=== PATIENT | male | born 1985 | race Caucasian/White ===

== ENCOUNTER 2017-03-30 07:48 | Emergency (ER) | payer OTHER ==
[2017-03-30] MEDS ORDERED: ACETAMINOPHEN TAB 500 MG TAB PO STA (08:12)
[2017-03-30] MEDS ORDERED: IBUPROFEN 600 MG TAB PO STA (08:12)
[2017-03-30] MEDS ORDERED: IPRATROPIUM-ALBUTEROL 3 ML NEB INHALATION STA (08:13)
[2017-03-30] MEDS ORDERED: SODIUM CHLORIDE 0.9% 2,000 ML IV ONE (08:14)
[2017-03-30] MEDS ORDERED: ONDANSETRON 4 MG/2 ML VIAL IVP STA (08:14)
--- NOTE | 2017-03-30 08:21 | ED ---
Nausea/Vomiting/Diarrhea HPI - General Chief complaint: Nausea/Vomiting/Diarrhea Stated complaint: vomiting, rt testicle pain, multiple complaints Time Seen by Provider: 03/30/17 08:00 Source: patient, RN notes reviewed, old records reviewed Mode of arrival: ambulatory Limitations: no limitations - History of Present Illness Initial comments: This patient is a 31-year-old male with multiple complaints today. He reports that he woke up this morning morning with nausea and vomiting, aches and fevers and chills. He reports that nobody around him as the flu. He reports that he also has been having some right testicular pain for the past 2 days. He reports he has no difficulty with urination. He denies any blood in his urine. He states that he has had no trauma to the area. He complains of backaches, sore throat, hoarse voice, any ear pain. He reports that he also has been having some trouble with his right ear for the past week. He reports that his dog jumped up and hit him in the ear. He reports he's noticed some drainage from his ear since then. Patient reports he took an aspirin prior to arrival. - Related Data Home Medications Medication Instructions Recorded Confirmed Aspirin 325 mg PO DAILY PRN 03/30/17 03/30/17 Melatonin 3 mg PO HS 03/30/17 03/30/17 diphenhydrAMINE [Benadryl] 25 mg PO TID PRN 03/30/17 03/30/17 Previous Rx's Medication Instructions Recorded Acetaminophen-Codeine 300-30mg 1 tab PO Q6H PRN #20 tablet 03/30/17 [Tylenol #3] Ciprofloxacin HCl [Cipro] 500 mg PO BID 10 Days #6 tab 03/30/17 Ondansetron Odt [Zofran Odt] 4 mg PO Q8HR PRN #20 tab 03/30/17 metroNIDAZOLE [Flagyl] 500 mg PO TID #30 tab 03/30/17 Allergies Allergy/AdvReac Type Severity Reaction Status Date / Time No Known Allergies Allergy Verified 03/30/17 11:41 Review of Systems ROS Statement: Those systems with pertinent positive or pertinent negative responses have been documented in the HPI. ROS Other: All systems not noted in ROS Statement are negative. Past Medical History Additional Past Medical History / Comment(s): borderline personality disorder History of Any Multi-Drug Resistant Organisms: None Reported Past Surgical History: Adenoidectomy, Ear Surgery, Tonsillectomy Additional Past Surgical History / Comment(s): left arm laceration repair Past Psychological History: Anxiety, Bipolar Smoking Status: Never smoker Past Alcohol Use History: Occasional Past Drug Use History: None Reported General Exam - General Exam Comments Initial Comments: This patient is a 31-year-old male. Patient does appear to be in moderate discomfort. Limitations: no limitations General appearance: alert, in no apparent distress Head exam: Present: atraumatic, normocephalic, normal inspection Eye exam: Present: normal appearance, PERRL, EOMI. Absent: scleral icterus, conjunctival injection, periorbital swelling ENT exam: Present: normal exam, mucous membranes moist Neck exam: Present: normal inspection. Absent: tenderness, meningismus, lymphadenopathy Respiratory exam: Present: rhonchi (bilaterally). Absent: normal lung sounds bilaterally, respiratory distress, wheezes, rales, stridor Cardiovascular Exam: Present: regular rate, normal rhythm, normal heart sounds. Absent: systolic murmur, diastolic murmur, rubs, gallop, clicks GI/Abdominal exam: Present: soft, tenderness (minimal RLQ tenderness), normal bowel sounds. Absent: distended, guarding, rebound, rigid exam: Present: normal inspection, testicular tenderness (right testicular tenderness) External exam: Present: normal external exam Extremities exam: Present: normal inspection, full ROM, normal capillary refill. Absent: tenderness, pedal edema, joint swelling, calf tenderness Back exam: Present: normal inspection Neurological exam: Present: alert, oriented X3, CN II-XII intact Psychiatric exam: Present: normal affect, normal mood Course Vital Signs 03/30/17 03/30/17 03/30/17 07:52 08:29 08:30 Temperature 99.1 F 100.8 F H Pulse Rate 61 61 Respiratory 20 Rate Blood Pressure 143/93 O2 Sat by Pulse 97 Oximetry 03/30/17 03/30/17 09:39 11:31 Temperature 98.9 F 98.8 F Pulse Rate 108 H 96 Respiratory 16 16 Rate Blood Pressure 181/78 131/73 O2 Sat by Pulse 99 100 Oximetry Medical Decision Making - Medical Decision Making This patient is a 31-year-old male with multiple complaints today. He reports that he woke up this morning morning with nausea and vomiting, aches and fevers and chills. He reports that nobody around him as the flu. He reports that he also has been having some right testicular pain for the past 2 days. Patient arrived with fever and chills, and RLQ and testicular tenderness. PAtient lab work shows leukocytosis. urinalysis shows no infection. CT abdomen and pelvis shows evidence of colitis. Appendix is normal. HE had a normal US scrotum. Patient will be treated with cipro and flagyl for colitis. HE denies bloody stools or major diarrhea. Disucssed follow up with PCP and return parameters discussed. - Lab Data Result diagrams: 03/30/17 08:25 03/30/17 08:25 Lab Results 03/30/17 03/30/17 03/30/17 Range/Units 08:25 08:25 08:25 WBC 14.0 H (3.8-10.6) k/uL RBC 4.20 L (4.30-5.90) m/uL Hgb 11.4 L (13.0-17.5) gm/dL Hct 35.7 L (39.0-53.0) % MCV 85.0 (80.0-100.0) fL MCH 27.3 (25.0-35.0) pg MCHC 32.1 (31.0-37.0) g/dL RDW 13.9 (11.5-15.5) % Plt Count 239 (150-450) k/uL Neutrophils % 88 % Lymphocytes % 7 % Monocytes % 3 % Eosinophils % 1 % Basophils % 0 % Neutrophils # 12.3 H (1.3-7.7) k/uL Lymphocytes # 1.0 (1.0-4.8) k/uL Monocytes # 0.4 (0-1.0) k/uL Eosinophils # 0.2 (0-0.7) k/uL Basophils # 0.1 (0-0.2) k/uL PT (9.0-12.0) sec INR (<1.2) APTT (22.0-30.0) sec Sodium 134 L (137-145) mmol/L Potassium 3.9 (3.5-5.1) mmol/L Chloride 98 (98-107) mmol/L Carbon Dioxide 27 (22-30) mmol/L Anion Gap 9 mmol/L BUN 11 (9-20) mg/dL Creatinine 0.89 (0.66-1.25) mg/dL Est GFR (MDRD) Af Amer >60 (>60 ml/min/1.73 sqM) Est GFR (MDRD) Non-Af >60 (>60 ml/min/1.73 sqM) Glucose 110 H (74-99) mg/dL Plasma Lactic Acid Harpal 1.5 (0.7-2.0) mmol/L Calcium 8.9 (8.4-10.2) mg/dL Total Bilirubin 1.9 H (0.2-1.3) mg/dL AST 51 (17-59) U/L ALT 47 (21-72) U/L Alkaline Phosphatase 75 (38-126) U/L Total Protein 6.4 (6.3-8.2) g/dL Albumin 3.6 (3.5-5.0) g/dL Urine Color Urine Appearance (Clear) Urine pH (5.0-8.0) Ur Specific Connell (1.001-1.035) Urine Protein (Negative) Urine Glucose (UA) (Negative) Urine Ketones (Negative) Urine Blood (Negative) Urine Nitrite (Negative) Urine Bilirubin (Negative) Urine Urobilinogen (<2.0) mg/dL Ur Leukocyte Esterase (Negative) Influenza Type A RNA (Not Detectd) Influenza Type B (PCR) (Not Detectd) 03/30/17 03/30/17 03/30/17 Range/Units 08:25 08:25 09:36 WBC (3.8-10.6) k/uL RBC (4.30-5.90) m/uL Hgb (13.0-17.5) gm/dL Hct (39.0-53.0) % MCV (80.0-100.0) fL MCH (25.0-35.0) pg MCHC (31.0-37.0) g/dL RDW (11.5-15.5) % Plt Count (150-450) k/uL Neutrophils % % Lymphocytes % % Monocytes % % Eosinophils % % Basophils % % Neutrophils # (1.3-7.7) k/uL Lymphocytes # (1.0-4.8) k/uL Monocytes # (0-1.0) k/uL Eosinophils # (0-0.7) k/uL Basophils # (0-0.2) k/uL PT 10.6 (9.0-12.0) sec INR 1.1 (<1.2) APTT 24.2 (22.0-30.0) sec Sodium (137-145) mmol/L Potassium (3.5-5.1) mmol/L Chloride (98-107) mmol/L Carbon Dioxide (22-30) mmol/L Anion Gap mmol/L BUN (9-20) mg/dL Creatinine (0.66-1.25) mg/dL Est GFR (MDRD) Af Amer (>60 ml/min/1.73 sqM) Est GFR (MDRD) Non-Af (>60 ml/min/1.73 sqM) Glucose (74-99) mg/dL Plasma Lactic Acid Harpal (0.7-2.0) mmol/L Calcium (8.4-10.2) mg/dL Total Bilirubin (0.2-1.3) mg/dL AST (17-59) U/L ALT (21-72) U/L Alkaline Phosphatase (38-126) U/L Total Protein (6.3-8.2) g/dL Albumin (3.5-5.0) g/dL Urine Color Yellow Urine Appearance Clear (Clear) Urine pH 6.0 (5.0-8.0) Ur Specific Connell 1.023 (1.001-1.035) Urine Protein Trace H (Negative) Urine Glucose (UA) Negative (Negative) Urine Ketones Negative (Negative) Urine Blood Negative (Negative) Urine Nitrite Negative (Negative) Urine Bilirubin Negative (Negative) Urine Urobilinogen <2.0 (<2.0) mg/dL Ur Leukocyte Esterase Negative (Negative) Influenza Type A RNA Not Detected (Not Detectd) Influenza Type B (PCR) Not Detected (Not Detectd) - Radiology Data Radiology results: report reviewed Ultrasound of the scrotum a Doppler showed evidence of normal intrinsic testicles. Small, bilateral hydroceles. Patient has a normal chest x-ray. CT abdomen and pelvis states to correlate for colitis. Normal appendix. Mild hepato-megaly. Disposition Clinical Impression: Colitis Disposition: HOME SELF-CARE Condition: Good Instructions: Colitis (ED) Additional Instructions: Patient advised to follow-up with primary care physician. Take the medicines as prescribed. Return to emergency department if any alarming signs or symptoms occur. Prescriptions: Acetaminophen-Codeine 300-30mg [Tylenol #3] 1 tab PO Q6H PRN #20 tablet PRN Reason: Pain Ciprofloxacin HCl [Cipro] 500 mg PO BID 10 Days #6 tab metroNIDAZOLE [Flagyl] 500 mg PO TID #30 tab Ondansetron Odt [Zofran Odt] 4 mg PO Q8HR PRN #20 tab PRN Reason: Pain Referrals: None,Stated [Primary Care Provider] - 1-2 days Time of Disposition: 11:41
--- NOTE | 2017-03-30 08:56 | XR ---
EXAMINATION TYPE: XR chest 2V DATE OF EXAM: 03/30/2017 HISTORY: Fever. REFERENCE: Previous study dated 06/22/2012. FINDINGS: The lungs remain clear. Pleural space are clear. The heart is not enlarged.. IMPRESSION: NORMAL CHEST.
--- NOTE | 2017-03-30 09:36 | US ---
EXAMINATION TYPE: US scrotum with doppler. Grayscale and color Doppler Duplex imaging performed of yadira piper scrotum. DATE OF EXAM: 03/30/2017 COMPARISON: NONE CLINICAL HISTORY: Pain. Right testicle pain EXAM MEASUREMENTS: TESTICLES: Right Testicle: 6.1 x 2.2 x 4.2 cm Left Testicle: 5.3 x 2.1 x 4.1 cm EPIDIDYMIS HEAD: Right Epididymis: 1.3 cm Left Epididymis: 1.2 cm Doppler performed to assess for testicular vascularity; good bilateral color flow and waveforms are s een. There is no evidence of testicular torsion. Presence of hydroceles: medial to left testicle = 3.4cm Presence of varicoceles: mild lateral to left testicle IMPRESSION: 1. NORMAL INTRINSIC TESTICLES. 2. SMALL, BILATERAL HYDROCELES.
[2017-03-30 09:41] LABS: Basophils # (A) 0.1 k/uL (0-0.2); Basophils % (A) 0 %; Eosinophils # (A) 0.2 k/uL (0-0.7); Eosinophils % (A) 1 %; HCT 35.7 % (39.0-53.0); HGB 11.4 gm/dL (13.0-17.5); Lymphocytes % (A) 7 %; MCH 27.3 pg (25.0-35.0); MCHC 32.1 g/dL (31.0-37.0); Mean Platelet Volume 6.6; Monocytes # (A) 0.4 k/uL (0-1.0); Monocytes % (A) 3 %; Neutrophils # (A) 12.3 k/uL (1.3-7.7); Neutrophils % (A) 88 %; Platelet Count 239 k/uL (150-450); RDW 13.9 % (11.5-15.5)
[2017-03-30 09:48] LABS: Appearance,Urine Clear (Clear); Bilirubin,Urine Negative (Negative); Blood,Urine Negative (Negative); Color,Urine Yellow; Glucose,Urine (UA) Negative (Negative); Ketones,Urine Negative (Negative); Leukocyte Esterase,Urine Negative (Negative); Nitrite,Urine Negative (Negative); Protein,Urine Trace (Negative); Specific Gravity,Urine 1.023 (1.001-1.035); Urobilinogen,Urine <2.0 mg/dL (<2.0)
[2017-03-30 09:51] LABS: INR 1.1 (<1.2)
[2017-03-30 09:52] LABS: Partial Thromboplastin Time 24.2 sec (22.0-30.0); Prothrombin Time 10.6 sec (9.0-12.0)
[2017-03-30 09:54] LABS: ALT 47 U/L (21-72); AST 51 U/L (17-59); Albumin 3.6 g/dL (3.5-5.0); Alkaline Phosphatase 75 U/L (38-126); Anion Gap 9 mmol/L; Blood Urea Nitrogen 11 mg/dL (9-20); Calcium 8.9 mg/dL (8.4-10.2); Carbon Dioxide 27 mmol/L (22-30); Chloride 98 mmol/L (98-107); Glucose 110 mg/dL (74-99); Potassium 3.9 mmol/L (3.5-5.1); Sodium 134 mmol/L (137-145); Total Bilirubin 1.9 mg/dL (0.2-1.3); Total Protein 6.4 g/dL (6.3-8.2)
[2017-03-30 09:57] VITALS: RESP 16
[2017-03-30] MEDS ORDERED: RX INFO: IV CONTRAST WAS GIVEN 1 EACH MISC MISCELLANE PRN (10:00)
[2017-03-30] MEDS ORDERED: MORPHINE SULFATE 2 MG/ML SYRINGE IVP STA ×2 (10:01→10:11)
--- NOTE | 2017-03-30 10:59 | CT ---
EXAMINATION TYPE: CT abdomen pelvis w con DATE OF EXAM: 03/30/2017 REFERENCE: Previous study dated 06/22/2012 HISTORY: RLQ pain, fever HISTORY: Vomit ting and right testicular pain REFERENCE: NONE CT DLP: 617.40 mGy Automated exposure control for dose reduction was used. TECHNIQUE: Helical acquisition through the abdomen and pelvis was obtained following the oral ingesti on of without Oral Contrast and following intravenous administration of 100 ml mL of Omnipaque 300. T he data was reformatted in axial, coronal and sagittal projections. FINDINGS: Visualized portions of the lungs are clear. There is no pleural or pericardial fluid. The heart is not enlarged. There is a small hiatal hernia. The liver is mildly prominent measuring 20 cm. There is a small hemangioma measuring 2.1 cm and the p osterior segment of the right lobe of the liver. This completely fills in with contrast on the delaye d images. The spleen and gallbladder appear normal. Both adrenal glands appear normal. Both kidneys demonstrate function and appear morphologically normal. The pancreas is unremarkable. There is no significant retroperitoneal, iliac or inguinal adenopathy. The bladder is unremarkable. There is mucosal thickening involving the sigmoid colon. The appendix is normal. Small bowel caliber is normal. There is no free fluid and no free air. There is a small is noted in the superior endplate of the L2 vertebral body. The visualized skeleton is otherwise unremarkable. IMPRESSION: 1. PLEASE CORRELATE FOR COLITIS. 2. NORMAL APPENDIX. 3. MILD HEPATOMEGALY.
[2017-03-30 11:32] VITALS: BP 131/73; PULSE 96; TEMP 98.8
[2017-03-30] MEDS ORDERED: metroNIDAZOLE 500 MG TAB PO STA (11:40)
[2017-03-30] MEDS ORDERED: CIPROFLOXACIN HCL 500 MG TAB PO STA (11:40)
== END 2017-03-30 12:01 | disposition home or self-care (01) ==
LOC: EC 07:48
DX: K52.9 Noninfective gastroenteritis and colitis, unspecified (principal); R09.89 Other specified symptoms and signs involving the circulatory and respiratory systems; N50.811 Right testicular pain; R50.9 Fever, unspecified; R52 Pain, unspecified; R11.2 Nausea with vomiting, unspecified; J02.9 Acute pharyngitis, unspecified; R49.0 Dysphonia; H92.01 Otalgia, right ear; H93.8X1 Other specified disorders of right ear; Z79.899 Other long term (current) drug therapy; Z90.89 Acquired absence of other organs; Z98.890 Other specified postprocedural states
CPT/HCPCS: 36415; 94640; 80053; 83605; 85025; 85610; 85730; 81003; 87040; 87086; 87502; 71046; 93975; 76870; 74177; 99285; 96374; 96375; 96361 ×2; J2405; J2270; Q9967

== ENCOUNTER 2021-08-18 10:33 | Emergency (ER) | payer OTHER ==
[2021-08-18 10:42] VITALS: BP 118/71; PULSE 79; RESP 18; TEMP 97.7
[2021-08-18] MEDS ORDERED: KETOROLAC 15 MG/ML 1 ML VIAL IVP STA (10:54)
--- NOTE | 2021-08-18 11:11 | ED ---
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 He states that symptoms began approximately 3 days ago and have progressively gotten worse. He states that he had a prescription for penicillin at home that was several years old; he took 2 doses of that medication however he had noticed no change in symptoms. He has not taken any other medications regarding his symptoms. He reports some associated occasional nausea without vomiting and chills at night however he denies any chest pain, shortness of breath, known fevers, or difficulty eating and drinking. He has a past medical history significant for bipolar disorder but has no other underlying chronic conditions. He denies any other complaints or concerns. - Related Data Home Medications Medication Instructions Recorded Confirmed Aspirin 325 mg PO DAILY PRN 03/30/17 03/30/17 Melatonin 3 mg PO HS 03/30/17 03/30/17 diphenhydrAMINE [Benadryl] 25 mg PO TID PRN 03/30/17 03/30/17 Previous Rx's Medication Instructions Recorded Acetaminophen-Codeine 300-30mg 1 tab PO Q6H PRN #20 tablet 03/30/17 [Tylenol #3] Ciprofloxacin HCl [Cipro] 500 mg PO BID 10 Days #6 tab 03/30/17 Ondansetron Odt [Zofran Odt] 4 mg PO Q8HR PRN #20 tab 03/30/17 metroNIDAZOLE [Flagyl] 500 mg PO TID #30 tab 03/30/17 Amoxic-Pot Clav 875-125Mg 1 tab PO Q12HR 10 Days #20 tab 08/18/21 [Augmentin 875-125] Allergies Allergy/AdvReac Type Severity Reaction Status Date / Time No Known Allergies Allergy Verified 08/18/21 10:39 Review of Systems ROS Statement: Those systems with pertinent positive or pertinent negative responses have been documented in the HPI. ROS Other: All systems not noted in ROS Statement are negative. Past Medical History Additional Past Medical History / Comment(s): borderline personality disorder History of Any Multi-Drug Resistant Organisms: None Reported Past Surgical History: Adenoidectomy, Ear Surgery, Tonsillectomy Additional Past Surgical History / Comment(s): left arm laceration repair Past Psychological History: Anxiety, Bipolar Smoking Status: Never smoker Past Alcohol Use History: Occasional Past Drug Use History: None Reported General Exam Limitations: no limitations General appearance: alert, in no apparent distress Head exam: Present: atraumatic, normocephalic, normal inspection Eye exam: Present: PERRL, EOMI, periorbital swelling, periorbital tenderness (left). Absent: scleral icterus, conjunctival injection Expanded Mouth exam: Present: tongue normal, other (Left upper vesicular lesions noted to oromucosa with surrounding edema and erythema. No drainage.) Teeth exam: Present: dental caries, fractured tooth #, dental tenderness #, gingival enlargement Throat exam: other (erythema and uvular deviation) Neck exam: Present: lymphadenopathy. Absent: tenderness Respiratory exam: Present: normal lung sounds bilaterally. Absent: respiratory distress, wheezes, rales, rhonchi, stridor Cardiovascular Exam: Present: regular rate, normal rhythm, normal heart sounds. Absent: systolic murmur, diastolic murmur, rubs, gallop, clicks GI/Abdominal exam: Present: soft, normal bowel sounds. Absent: distended, tenderness, guarding, rebound, rigid Extremities exam: Present: normal inspection, full ROM, normal capillary refill. Absent: tenderness, pedal edema, joint swelling, calf tenderness Back exam: Present: normal inspection Neurological exam: Present: alert, oriented X3, CN II-XII intact Psychiatric exam: Present: normal affect, normal mood Skin exam: Present: warm, dry, intact, normal color. Absent: rash Course Vital Signs 08/18/21 10:40 Temperature 97.7 F Pulse Rate 79 Respiratory 18 Rate Blood Pressure 118/71 O2 Sat by Pulse 98 Oximetry Medical Decision Making - Medical Decision Making In the setting of periorbital edema, nausea and chills will check CT of sinuses along with CBC, CMP and blood cultures will give IM Toradol for pain and swelling and monitor response. Pain improved with Toradol. Mild leukocytosis consistent with dental abscess. No evidence of sepsis on blood work. Computed tomography scan shows chronic sinusitis. Will discharge home on oral antibiotics and encourage follow-up with dentist. Case discussed with Dr. Jonas - Lab Data Result diagrams: 08/18/21 11:08 08/18/21 11:08 Lab Results 08/18/21 08/18/21 Range/Units 11:08 11:08 WBC 12.1 H (3.8-10.6) k/uL RBC 4.52 (4.30-5.90) m/uL Hgb 14.5 (13.0-17.5) gm/dL Hct 42.3 (39.0-53.0) % MCV 93.5 (80.0-100.0) fL MCH 32.0 (25.0-35.0) pg MCHC 34.2 (31.0-37.0) g/dL RDW 13.1 (11.5-15.5) % Plt Count 274 (150-450) k/uL MPV 7.2 Neutrophils % 81 % Lymphocytes % 11 % Monocytes % 5 % Eosinophils % 1 % Basophils % 0 % Neutrophils # 9.7 H (1.3-7.7) k/uL Lymphocytes # 1.3 (1.0-4.8) k/uL Monocytes # 0.6 (0-1.0) k/uL Eosinophils # 0.2 (0-0.7) k/uL Basophils # 0.0 (0-0.2) k/uL Sodium 137 (137-145) mmol/L Potassium 4.3 (3.5-5.1) mmol/L Chloride 103 (98-107) mmol/L Carbon Dioxide 27 (22-30) mmol/L Anion Gap 7 mmol/L BUN 8 L (9-20) mg/dL Creatinine 0.87 (0.66-1.25) mg/dL Est GFR (CKD-EPI)AfAm >90 (>60 ml/min/1.73 sqM) Est GFR (CKD-EPI)NonAf >90 (>60 ml/min/1.73 sqM) Glucose 103 H (74-99) mg/dL Calcium 8.5 (8.4-10.2) mg/dL Total Bilirubin 1.3 (0.2-1.3) mg/dL AST 32 (17-59) U/L ALT 31 (4-49) U/L Alkaline Phosphatase 68 (38-126) U/L Total Protein 7.2 (6.3-8.2) g/dL Albumin 4.2 (3.5-5.0) g/dL Disposition Clinical Impression: Dental abscess Disposition: HOME SELF-CARE Condition: Stable Instructions (If sedation given, give patient instructions): Dental Abscess (ED) Additional Instructions: Ibuprofen as needed for pain and 7. Please use warm salt water rinses. Continue complete antibiotic as prescribed. Please establish with an follow-up for dental care. Please follow-up with your primary care provider. Please return to the Emergency Department if symptoms worsen or any other concerns. Prescriptions: Amoxic-Pot Clav 875-125Mg [Augmentin 875-125] 1 tab PO Q12HR 10 Days #20 tab Is patient prescribed a controlled substance at d/c from ED?: No Referrals: None,Stated [Primary Care Provider] - As Soon As Possible (and local dentist) Time of Disposition: 13:09
[2021-08-18 11:23] LABS: Basophils % (A) 0 %; Eosinophils # (A) 0.2 k/uL (0-0.7); Eosinophils % (A) 1 %; HCT 42.3 % (39.0-53.0); HGB 14.5 gm/dL (13.0-17.5); Lymphocytes # (A) 1.3 k/uL (1.0-4.8); Lymphocytes % (A) 11 %; MCHC 34.2 g/dL (31.0-37.0); MCV 93.5 fL (80.0-100.0); Mean Platelet Volume 7.2; Monocytes # (A) 0.6 k/uL (0-1.0); Monocytes % (A) 5 %; Neutrophils # (A) 9.7 k/uL (1.3-7.7); Neutrophils % (A) 81 %; Platelet Count 274 k/uL (150-450); RBC 4.52 m/uL (4.30-5.90); RDW 13.1 % (11.5-15.5); WBC 12.1 k/uL (3.8-10.6)
[2021-08-18 11:37] LABS: ALT 31 U/L (4-49); AST 32 U/L (17-59); African American GFR (CKD) >90 (>60 ml/min/1.73 sqM); Albumin 4.2 g/dL (3.5-5.0); Alkaline Phosphatase 68 U/L (38-126); Anion Gap 7 mmol/L; Blood Urea Nitrogen 8 mg/dL (9-20); Calcium 8.5 mg/dL (8.4-10.2); Carbon Dioxide 27 mmol/L (22-30); Chloride 103 mmol/L (98-107); Glucose 103 mg/dL (74-99); Non-African American GFR(CKD) >90 (>60 ml/min/1.73 sqM); Potassium 4.3 mmol/L (3.5-5.1); Sodium 137 mmol/L (137-145); Total Bilirubin 1.3 mg/dL (0.2-1.3); Total Protein 7.2 g/dL (6.3-8.2)
--- NOTE | 2021-08-18 12:49 | CT ---
EXAMINATION TYPE: CT sinus wo con DATE OF EXAM: 08/18/2021 COMPARISON: None HISTORY: Lt sided cheek [id number] CT DLP: 405.6 mGycm. Automated Exposure Control for Dose Reduction was Utilized. TECHNIQUE: CT scan of the sinuses is performed without contrast, axial images are obtained, coronal r eformatted images are also reviewed. FINDINGS: The left maxillary sinus shows extensive mucosal thickening. There are no air-fluid levels. Mucosal disease also present within the ethmoid air cells. Ostiomeatal units are patent. Trice bull meme present bilaterally. Minimal mucosal disease present in the right maxillary sinus. There is a dev iated nasal septum toward the left. Temporomandibular joints are intact. There is some thickening of the tympanic membrane on the right. No erosion of the scutum bilaterally. Auditory ossicles show symmetric appearance. External auditory canals are patent. Visualized portion of mastoid air cells show no abnormal opacification. The globe s are intact bilaterally. IMPRESSION: Correlate for chronic sinusitis.
== END 2021-08-18 13:13 | disposition home or self-care (01) ==
LOC: EC 10:33
DX: K04.7 Periapical abscess without sinus (principal)
CPT/HCPCS: 36415; 80053; 85025; 70486; 99284; 96374; J1885

== ENCOUNTER 2023-01-16 22:13 | Emergency (ER) | payer OTHER ==
[2023-01-16] MEDS ORDERED: MORPHINE SULFATE 4 MG/ML SYRINGE IVP STA (22:20)
[2023-01-16] MEDS ORDERED: LORazepam 2 MG/ML INJ IV STA (22:26)
--- NOTE | 2023-01-16 22:34 | ED ---
Trauma HPI - General Stated Complaint: ETOH Time Seen by Provider: 01/16/23 22:15 Source: patient, EMS Mode of arrival: EMS Limitations: altered mental status - History of Present Illness Initial Comments: 's patient is a 37-year-old man brought to have evaluation by EMS. First responders were called to a man lying in the road. EMS arrived and found him to be poorly responsive. He did become more alert after they gave dose of Narcan. On arrival, the patient does not recall falling. He is denying is pain, dyspnea, back, abdomen or extremity pain. Patient admits to drinking MD Complaint: injury -: unknown Loss of Consciousness: yes Location: face Context: unsure Associated Symptoms: denies other symptoms Treatments Prior to Arrival: cervical collar - Related Data Home Medications Medication Instructions Recorded Confirmed Aspirin 325 mg PO DAILY PRN 03/30/17 03/30/17 Melatonin 3 mg PO HS 03/30/17 03/30/17 diphenhydrAMINE [Benadryl] 25 mg PO TID PRN 03/30/17 03/30/17 Previous Rx's Medication Instructions Recorded Acetaminophen-Codeine 300-30mg 1 tab PO Q6H PRN #20 tablet 03/30/17 [Tylenol #3] Ciprofloxacin HCl [Cipro] 500 mg PO BID 10 Days #6 tab 03/30/17 Ondansetron Odt [Zofran Odt] 4 mg PO Q8HR PRN #20 tab 03/30/17 metroNIDAZOLE [Flagyl] 500 mg PO TID #30 tab 03/30/17 Amoxic-Pot Clav 875-125Mg 1 tab PO Q12HR 10 Days #20 tab 08/18/21 [Augmentin 875-125] Allergies Allergy/AdvReac Type Severity Reaction Status Date / Time No Known Allergies Allergy Verified 08/18/21 10:39 Review of Systems ROS Statement: Those systems with pertinent positive or pertinent negative responses have been documented in the HPI. ROS Other: All systems not noted in ROS Statement are negative. Limitations: ROS unobtainable due to patients medical condition Past Medical History Additional Past Medical History / Comment(s): borderline personality disorder History of Any Multi-Drug Resistant Organisms: None Reported Past Surgical History: Adenoidectomy, Ear Surgery, Tonsillectomy Additional Past Surgical History / Comment(s): left arm laceration repair Past Psychological History: Anxiety, Bipolar Smoking Status: Never smoker Past Alcohol Use History: Occasional Past Drug Use History: None Reported General Exam General appearance: obtunded Head exam: Present: normocephalic Eye exam: Present: PERRL, EOMI, nystagmus. Absent: scleral icterus, conjunctival injection, periorbital swelling, periorbital tenderness ENT exam: Present: mucous membranes moist, TM's normal bilaterally, normal external ear exam, other (Blood bilateral nares) Neck exam: Present: other (Cervical collar). Absent: tenderness Respiratory exam: Present: normal lung sounds bilaterally. Absent: respiratory distress, wheezes, rales, rhonchi, stridor, accessory muscle use Cardiovascular Exam: Present: regular rate, normal rhythm, normal heart sounds. Absent: systolic murmur, diastolic murmur, rubs, gallop GI/Abdominal exam: Present: soft. Absent: distended, tenderness, guarding, rebound, rigid, mass, pulsatile mass, hernia Extremities exam: Present: normal inspection, normal capillary refill. Absent: pedal edema, calf tenderness Back exam: Present: normal inspection. Absent: CVA tenderness (R), CVA tendern ess (L), vertebral tenderness Neurological exam: Present: altered, CN II-XII intact. Absent: motor sensory deficit Expanded Patient oriented to: Present: person Motor strength exam: RUE: 5, LUE: 5, RLE: 5, LLE: 5 DTR: Patellar (R): 2+, Patellar (L): 2+ Eye Response: (3) open to voice Motor Response: (6) obeys commands Verbal Response: (4) confused conversation [place] Total: 13 Course Vital Signs 01/16/23 22:15 Pulse Rate 94 Respiratory 18 Rate Blood Pressure 114/64 O2 Sat by Pulse 96 Oximetry Medical Decision Making - Medical Decision Making This patient is 37-year-old man who was reportedly found unresponsive lying on the road. He is brought to the trauma resuscitation bay and managed under ATLS protocol. Case discussed with the trauma surgeon. The patient had chest x-ray which I interpreted as negative for acute bony trauma, no pneumothorax. The patient had pelvis x-ray which I interpreted as negative for acute bony injury. The patient had CT of the brain and C-spine that I interpreted to show nasal bone fracture area no acute intracranial hemorrhage The patient had computed tomography scan of the abdomen and pelvis which I interpreted to show no significant intra-abdominal hemorrhage, no solid organ injury, no acute bony injury The patient continued to become more alert and appropriate. He was denying any further complaints then mild facial discomfort. After being observed in the emergency department he stated that he wanted to go home he did not want to be admitted after this had already been arranged. Given that the patient is legally intoxicated, though not manifesting clinical symptoms of intoxication, he was held until a responsible adult would come and take custody of him. He did call family member who agreed to observe him. Was pt. sent in by a medical professional or institution (, PA, OFFICE AGENT, urgent care, hospital, or intermediate...) When possible be specific @ -[No] Did you speak to anyone other than the patient for history (EMS, parent, family, police, friend...)? What history was obtained from this source @ -[No] Did you review nursing and triage notes (agree or disagree)? Why? @ -[I reviewed and agree with nursing and triage notes] Were old charts reviewed (outside hosp., previous admission, EMS record, old EKG, old radiological studies, urgent care reports/EKG's, intermediate records)? Report findings @ -[No old charts were reviewed] Differential Diagnosis (chest pain, altered mental status, abdominal pain women, abdominal pain men, vaginal bleeding, weakness, fever, dyspnea, syncope, headache, dizziness, GI bleed, back pain, seizure, CVA, palpatations, mental health, musculoskeletal)? @ -[Differential Altered Mental Status: Hypoglycemia, DKA, hypercapnia, ETOH, overdose, CO poisoning, trauma, myxedema coma, HTN encephalopathy, infection, encephalitis, psychosis, intercranial hemorrhage, hepatic encephalopathy, meningitis, CVA, this is not meant to be an all-inclusive list Differential Musculoskeletal Muscular strain, contusion, ligament sprain, fracture, arthritis, septic arthritis, bursitis, cellulitis, muscle spasm, nerve compression, DVT, arterial occlusion, electrolyte abnormality, tumor.... This is not meant to be in all inclusive list EKG interpreted by me (3pts min.). @ -[As above] X-rays interpreted by me (1pt min.). @ -[I interpreted as above CT interpreted by me (1pt min.). @ -[Interpreted as above U/S interpreted by me (1pt. min.). @ -[None done] What testing was considered but not performed or refused? (CT, X-rays, U/S, labs)? Why? @ -[None] What meds were considered but not given or refused? Why? @ -[None] Did you discuss the management of the patient with other professionals (professionals i.e. , PA, OFFICE AGENT, lab, RT, psych nurse, social economist, plastics fabrication supervisor, teacher, equal employment opportunity officer, case operator)? Give summary @ -[Case discussed with the trauma surgeon on-call and treatment recommendations are incorporated Was smoking cessation discussed for >3mins.? @ -[No] Was critical care preformed (if so, how long)? @ -[No] Were there social determinants of health that impacted care today? How? (Homelessness, low income, unemployed, alcoholism, drug addiction, transportation, low edu. Level, literacy, decrease access to med. care, assisted, rehab)? @ -[No] Was there de-escalation of care discussed even if they declined (Discuss DNR or withdrawal of care, Hospice)? DNR status @ -[No] What co-morbidities impacted this encounter? (DM, HTN, Smoking, COPD, CAD, Cancer, CVA, ARF, Chemo, Hep., AIDS, mental health diagnosis, sleep apnea, morbid obesity)? @ -[None] Was patient admitted / discharged? Hospital course, mention meds given and route, prescriptions, significant lab abnormalities, going to OR and other pertinent info. @ -[The patient is initially admitted to the trauma service as he is legally intoxicated, though the patient not manifesting any ataxia or dysarthria, appearing more clinically sober. The patient is held until family member did arrive to take custody of him, and we discussed the appropriate further care, follow-up, return parameters. Undiagnosed new problem with uncertain prognosis? @ -[No] Drug Therapy requiring intensive monitoring for toxicity (Heparin, Nitro, Insulin, Cardizem)? @ -[No] Were any procedures done? @ -[No] Diagnosis/symptom? @ -[Acute alcohol intoxication History of substance abuse Acute minor head trauma Acute nasal bone fracture Acute, or Chronic, or Acute on Chronic? @ -[default] Uncomplicated (without systemic symptoms) or Complicated (systemic symptoms)? @ -[Uncomplicated Side effects of treatment? @ -[No] Exacerbation, Progression, or Severe Exacerbation? @ -[No] Poses a threat to life or bodily function? How? (Chest pain, [place], [place], pneumonia, PE, COPD, DKA, ARF, appy, cholecystitis, CVA, Diverticulitis, Homicidal, Suicidal, threat to staff... and all critical care pts) @ -[No] - Lab Data Result diagrams: 01/16/23 22:01/16/23 22:21 Lab Results 01/16/23 01/16/23 01/16/23 Range/Units 22:20 22:21 22:21 WBC 8.8 (3.8-10.6) k/uL RBC 4.76 (4.30-5.90) m/uL Hgb 15.1 (13.0-17.5) gm/dL Hct 45.6 (39.0-53.0) % MCV 95.7 (80.0-100.0) fL MCH 31.7 (25.0-35.0) pg MCHC 33.2 (31.0-37.0) g/dL RDW 13.1 (11.5-15.5) % Plt Count 275 (150-450) k/uL MPV 7.5 Neutrophils % 50 % Lymphocytes % 37 % Monocytes % 4 % Eosinophils % 4 % Basophils % 1 % Neutrophils # 4.4 (1.3-7.7) k/uL Lymphocytes # 3.3 (1.0-4.8) k/uL Monocytes # 0.4 (0-1.0) k/uL Eosinophils # 0.3 (0-0.7) k/uL Basophils # 0.1 (0-0.2) k/uL PT 10.6 (10.0-12.5) sec INR 1.0 (<1.2) APTT 23.0 (22.0-30.0) sec Sodium (137-145) mmol/L Potassium (3.5-5.1) mmol/L Chloride (98-107) mmol/L Carbon Dioxide (22-30) mmol/L Anion Gap mmol/L BUN (9-20) mg/dL Creatinine (0.66-1.25) mg/dL Est GFR (CKD-EPI)AfAm (>60 ml/min/1.73 sqM) Est GFR (CKD-EPI)NonAf (>60 ml/min/1.73 sqM) Glucose (74-99) mg/dL Plasma Lactic Acid Harpal (0.7-2.0) mmol/L Calcium (8.4-10.2) mg/dL Total Bilirubin (0.2-1.3) mg/dL AST (17-59) U/L ALT (4-49) U/L Alkaline Phosphatase (38-126) U/L Troponin I (0.000-0.034) ng/mL Total Protein (6.3-8.2) g/dL Albumin (3.5-5.0) g/dL Urine Opiates Screen (NotDetected) Ur Oxycodone Screen (NotDetected) Urine Methadone Screen (NotDetected) Ur Propoxyphene Screen (NotDetected) Ur Barbiturates Screen (NotDetected) U Tricyclic Antidepress (NotDetected) Ur Phencyclidine Scrn (NotDetected) Ur Amphetamines Screen (NotDetected) U Methamphetamines Scrn (NotDetected) U Benzodiazepines Scrn (NotDetected) Urine Cocaine Screen (NotDetected) U Marijuana (THC) Screen (NotDetected) Serum Alcohol mg/dL Blood Type Recheck No Previous Record Bld Type Recheck Status CABO Indicated Spec Expiration Date 01/16/23229901/16/23 01/16/23 01/16/23 Range/Units 22:21 22:21 22:21 WBC (3.8-10.6) k/uL RBC (4.30-5.90) m/uL Hgb (13.0-17.5) gm/dL Hct (39.0-53.0) % MCV (80.0-100.0) fL MCH (25.0-35.0) pg MCHC (31.0-37.0) g/dL RDW (11.5-15.5) % Plt Count (150-450) k/uL MPV Neutrophils % % Lymphocytes % % Monocytes % % Eosinophils % % Basophils % % Neutrophils # (1.3-7.7) k/uL Lymphocytes # (1.0-4.8) k/uL Monocytes # (0-1.0) k/uL Eosinophils # (0-0.7) k/uL Basophils # (0-0.2) k/uL PT (10.0-12.5) sec INR (<1.2) APTT (22.0-30.0) sec Sodium 145 (137-145) mmol/L Potassium 4.1 (3.5-5.1) mmol/L Chloride 109 H (98-107) mmol/L Carbon Dioxide 23 (22-30) mmol/L Anion Gap 13 mmol/L BUN 11 (9-20) mg/dL Creatinine 1.60 H (0.66-1.25) mg/dL Est GFR (CKD-EPI)AfAm 63 (>60 ml/min/1.73 sqM) Est GFR (CKD-EPI)NonAf 55 (>60 ml/min/1.73 sqM) Glucose 124 H (74-99) mg/dL Plasma Lactic Acid Harpal 1.4 (0.7-2.0) mmol/L Calcium 8.9 (8.4-10.2) mg/dL Total Bilirubin 1.0 (0.2-1.3) mg/dL AST 63 H (17-59) U/L ALT 63 H (4-49) U/L Alkaline Phosphatase 97 (38-126) U/L Troponin I (0.000-0.034) ng/mL Total Protein 7.5 (6.3-8.2) g/dL Albumin 4.5 (3.5-5.0) g/dL Urine Opiates Screen Not Detected (NotDetected) Ur Oxycodone Screen Not Detected (NotDetected) Urine Methadone Screen Not Detected (NotDetected) Ur Propoxyphene Screen Not Detected (NotDetected) Ur Barbiturates Screen Not Detected (NotDetected) U Tricyclic Antidepress Not Detected (NotDetected) Ur Phencyclidine Scrn Not Detected (NotDetected) Ur Amphetamines Screen Not Detected (NotDetected) U Methamphetamines Scrn Not Detected (NotDetected) U Benzodiazepines Scrn Not Detected (NotDetected) Urine Cocaine Screen Not Detected (NotDetected) U Marijuana (THC) Screen Not Detected (NotDetected) Serum Alcohol 339 H* mg/dL Blood Type Recheck Bld Type Recheck Status Spec Expiration Date 01/16/23 Range/Units 22:21 WBC (3.8-10.6) k/uL RBC (4.30-5.90) m/uL Hgb (13.0-17.5) gm/dL Hct (39.0-53.0) % MCV (80.0-100.0) fL MCH (25.0-35.0) pg MCHC (31.0-37.0) g/dL RDW (11.5-15.5) % Plt Count (150-450) k/uL MPV Neutrophils % % Lymphocytes % % Monocytes % % Eosinophils % % Basophils % % Neutrophils # (1.3-7.7) k/uL Lymphocytes # (1.0-4.8) k/uL Monocytes # (0-1.0) k/uL Eosinophils # (0-0.7) k/uL Basophils # (0-0.2) k/uL PT (10.0-12.5) sec INR (<1.2) APTT (22.0-30.0) sec Sodium (137-145) mmol/L Potassium (3.5-5.1) mmol/L Chloride (98-107) mmol/L Carbon Dioxide (22-30) mmol/L Anion Gap mmol/L BUN (9-20) mg/dL Creatinine (0.66-1.25) mg/dL Est GFR (CKD-EPI)AfAm (>60 ml/min/1.73 sqM) Est GFR (CKD-EPI)NonAf (>60 ml/min/1.73 sqM) Glucose (74-99) mg/dL Plasma Lactic Acid Harpal (0.7-2.0) mmol/L Calcium (8.4-10.2) mg/dL Total Bilirubin (0.2-1.3) mg/dL AST (17-59) U/L ALT (4-49) U/L Alkaline Phosphatase (38-126) U/L Troponin I <0.012 (0.000-0.034) ng/mL Total Protein (6.3-8.2) g/dL Albumin (3.5-5.0) g/dL Urine Opiates Screen (NotDetected) Ur Oxycodone Screen (NotDetected) Urine Methadone Screen (NotDetected) Ur Propoxyphene Screen (NotDetected) Ur Barbiturates Screen (NotDetected) U Tricyclic Antidepress (NotDetected) Ur Phencyclidine Scrn (NotDetected) Ur Amphetamines Screen (NotDetected) U Methamphetamines Scrn (NotDetected) U Benzodiazepines Scrn (NotDetected) Urine Cocaine Screen (NotDetected) U Marijuana (THC) Screen (NotDetected) Serum Alcohol mg/dL Blood Type Recheck Bld Type Recheck Status Spec Expiration Date - EKG Data -: EKG Interpreted by Me EKG shows normal: sinus rhythm (Rate 98 bpm), axis (Normal), intervals (Normal), QRS complexes (Normal), ST-T waves (Normal) Rate: normal Interpretation: normal EKG Critical Care Time Critical Care Time: Yes (35 minutes) Disposition Clinical Impression: Fall, Alcohol intoxication, Nasal bone fracture Disposition: HOME SELF-CARE Condition: Good Instructions (If sedation given, give patient instructions): Alcohol Intoxication (ED) Is patient prescribed a controlled substance at d/c from ED?: No Referrals: None,Stated [Primary Care Provider] - 1-2 days
[2023-01-16 22:40] LABS: Basophils # (A) 0.1 k/uL (0-0.2); Basophils % (A) 1 %; Eosinophils # (A) 0.3 k/uL (0-0.7); Eosinophils % (A) 4 %; HCT 45.6 % (39.0-53.0); HGB 15.1 gm/dL (13.0-17.5); Lymphocytes # (A) 3.3 k/uL (1.0-4.8); Lymphocytes % (A) 37 %; MCH 31.7 pg (25.0-35.0); MCHC 33.2 g/dL (31.0-37.0); MCV 95.7 fL (80.0-100.0); Mean Platelet Volume 7.5; Monocytes # (A) 0.4 k/uL (0-1.0); Monocytes % (A) 4 %; Neutrophils # (A) 4.4 k/uL (1.3-7.7); Neutrophils % (A) 50 %; Platelet Count 275 k/uL (150-450); RBC 4.76 m/uL (4.30-5.90); RDW 13.1 % (11.5-15.5); WBC 8.8 k/uL (3.8-10.6)
[2023-01-16 22:47] LABS: ALT 63 U/L (4-49); AST 63 U/L (17-59); African American GFR (CKD) 63 (>60 ml/min/1.73 sqM); Albumin 4.5 g/dL (3.5-5.0); Alkaline Phosphatase 97 U/L (38-126); Anion Gap 13 mmol/L; Blood Urea Nitrogen 11 mg/dL (9-20); Calcium 8.9 mg/dL (8.4-10.2); Carbon Dioxide 23 mmol/L (22-30); Chloride 109 mmol/L (98-107); Glucose 124 mg/dL (74-99); Non-African American GFR(CKD) 55 (>60 ml/min/1.73 sqM); Potassium 4.1 mmol/L (3.5-5.1); Sodium 145 mmol/L (137-145); Total Protein 7.5 g/dL (6.3-8.2)
[2023-01-16 22:55] LABS: Prothrombin Time 10.6 sec (10.0-12.5)
[2023-01-16 23:02] LABS: Amphetamine Screen,Urine Not Detected (NotDetected); Barbiturate Screen,Urine Not Detected (NotDetected); Benzodiazepines Screen,Urine Not Detected (NotDetected); Cocaine Screen,Urine Not Detected (NotDetected); Methadone Screen, Urine Not Detected (NotDetected); Opiate Screen,Urine Not Detected (NotDetected); Oxycodone Screen, Urine Not Detected (NotDetected); Phencyclidine Screen,Urine Not Detected (NotDetected); Tricyclic Antidepressant,Urine Not Detected (NotDetected); Urn Cannabinoid Scrn Not Detected (NotDetected)
[2023-01-16 23:03] LABS: Alcohol 339 mg/dL
[2023-01-16 23:14] VITALS: BP 114/64; PULSE 94; RESP 18
--- NOTE | 2023-01-16 23:32 | XR ---
EXAM: XR Pelvis, 1 or 2 Views CLINICAL HISTORY: ITS.REASON XR Reason: Trauma TECHNIQUE: Frontal view of the pelvis. COMPARISON: No relevant prior studies available. FINDINGS: Bones/joints: No acute osseous abnormalities. Soft tissues: Unremarkable. IMPRESSION: Unremarkable pelvis.
--- NOTE | 2023-01-16 23:51 | CT ---
EXAM: CT Head Without Intravenous Contrast CLINICAL HISTORY: ITS.REASON CT Reason: trauma TECHNIQUE: Axial computed tomography images of the head/brain without intravenous contrast. CTDI is 45.2 mGy and DLP is 1206 mGy-cm. This CT exam was performed using one or more of the following dose reduction techniques: automated exposure control, adjustment of the mA and/or kV according to patient size, and/or use of iterative reconstruction technique. COMPARISON: CT sinuses 08/18/2021 FINDINGS: Brain: Unremarkable. No hemorrhage. No significant white matter disease. No edema. Ventricles: Unremarkable. No ventriculomegaly. Bones/joints: Right nasal bone and bilateral nasal process fractures. Soft tissues: Unremarkable. Sinuses: Mucosal thickening of bilateral ethmoid air cells. No acute sinusitis. Mastoid air cells: Patient has had prior left mastoidectomy with fat graft. Stable cortical defect within the lateral left temporal bone. IMPRESSION: No acute intracranial abnormality. Right nasal bone and bilateral nasal process fractures. EXAM: CT Cervical Spine Without Intravenous Contrast CLINICAL HISTORY: ITS.REASON CT Reason: trauma TECHNIQUE: Axial computed tomography images of the cervical spine without intravenous contrast. CTDI is 11.6 mGy and DLP is 368.5 mGy-cm. This CT exam was performed using one or more of the following dose reduction techniques: automated exposure control, adjustment of the mA and/or kV according to patient size, and/or use of iterative reconstruction technique. COMPARISON: No relevant prior studies available. FINDINGS: Vertebrae: Straightening of the cervical spine with loss of normal lordosis. No acute fracture. Discs/spinal canal/neural foramina: No acute findings. No spinal canal stenosis. Soft tissues: Unremarkable. IMPRESSION: No acute findings in the cervical spine.
--- NOTE | 2023-01-16 23:56 | CT ---
EXAM: CT Abdomen and Pelvis With Intravenous Contrast CLINICAL HISTORY: ITS.REASON CT Reason: trauma TECHNIQUE: Axial computed tomography images of the abdomen and pelvis with intravenous contrast. CTDI is 21.1 mGy and DLP is 1296.2 mGy-cm. This CT exam was performed using one or more of the following dose reduction techniques: automated exposure control, adjustment of the mA and/or kV according to patient size, and/or use of iterative reconstruction technique. COMPARISON: No relevant prior studies available. FINDINGS: Lung bases: Unremarkable. No mass. No consolidation. ABDOMEN: Liver: Unremarkable. No mass. Gallbladder and bile ducts: Unremarkable. No calcified stones. No ductal dilation. Pancreas: Unremarkable. No mass. No ductal dilation. Spleen: Unremarkable. No splenomegaly. Adrenals: Unremarkable. No mass. Kidneys and ureters: Unremarkable. No solid mass. No hydronephrosis. Stomach and bowel: Unremarkable. No obstruction. No mucosal thickening. PELVIS: Appendix: No findings to suggest acute appendicitis. Bladder: Unremarkable. No mass. Reproductive: Unremarkable as visualized. ABDOMEN and PELVIS: Intraperitoneal space: Unremarkable. No free air. No significant fluid collection. Bones/joints: No acute fracture. No dislocation. Soft tissues: Unremarkable. Vasculature: Unremarkable. No abdominal aortic aneurysm. Lymph nodes: Unremarkable. No enlarged lymph nodes. IMPRESSION: Normal abdomen and pelvis CT.
--- NOTE | 2023-01-16 23:56 | XR ---
EXAM: XR Chest, 1 View CLINICAL HISTORY: ITS.REASON XR Reason: trauma TECHNIQUE: Frontal view of the chest. COMPARISON: No relevant prior studies available. FINDINGS: Lungs: Shallow inspiration. No consolidation. Pleural space: Unremarkable. No pneumothorax. No pleural effusions. Heart: Unremarkable. No cardiomegaly. Mediastinum: Unremarkable. Normal mediastinal contour. Bones/joints: No acute osseous abnormalities. IMPRESSION: Shallow inspiration.
[2023-01-17] MEDS ORDERED: ONDANSETRON 4 MG/2 ML VIAL IVP PRN (00:07)
[2023-01-17] MEDS ORDERED: ACETAMINOPHEN TAB 325 MG TAB PO PRN (00:07)
[2023-01-17] MEDS ORDERED: NALOXONE 0.4 MG/ML 1 ML VIAL IV PRN (00:07)
[2023-01-17] MEDS ORDERED: Acetaminophen-Codeine 300-30mg TAB PO PRN (00:07)
[2023-01-17] MEDS ORDERED: LORazepam 2 MG/ML INJ IV PRN ×3 (00:15)
[2023-01-17] MEDS ORDERED: THIAMINE 100 MG/ML 2 ML VIAL IM STA (00:15)
[2023-01-17] MEDS ORDERED: SODIUM CHLORIDE 0.9% 1,000 ML IV SCH (00:15)
[2023-01-17] MEDS ORDERED: FAMOTIDINE 20 MG TAB PO SCH (09:00)
[2023-01-18] MEDS ORDERED: THIAMINE 100 MG TAB PO SCH (09:00)
== END 2023-01-17 02:35 | disposition home or self-care (01) ==
LOC: EC 22:13 → UNDOADMOB 01-17 00:10 → 5NMEDONC 01-17 00:10 → EC 01-17 02:35
DX: S02.2XXA Fracture of nasal bones, initial encounter for closed fracture (principal); F10.129 Alcohol abuse with intoxication, unspecified; Z86.59 Personal history of other mental and behavioral disorders; Z79.82 Long term (current) use of aspirin; Y90.8 Blood alcohol level of 240 mg/100 ml or more; W19.XXXA Unspecified fall, initial encounter
CPT/HCPCS: 96374 ×2; 99291 ×2; 36415; 93005; 86900; 86901; 80053; 83605; 84484; 85025; 85610; 85730; 80306; 72170; 71045; 72125; 70450; 74177; G0390; G0480; J2270; Q9967; 80320; 86850

== ENCOUNTER 2024-02-16 14:40 | Emergency (ER) | payer OTHER ==
[2024-02-16 14:47] VITALS: TEMP 98.7
[2024-02-16 15:18] LABS: Basophils % (A) 0 %; Eosinophils # (A) 0.2 k/uL (0-0.7); Eosinophils % (A) 2 %; HGB 15.7 gm/dL (13.0-17.5); Lymphocytes # (A) 2.2 k/uL (1.0-4.8); Lymphocytes % (A) 29 %; MCHC 34.9 g/dL (31.0-37.0); MCV 91.9 fL (80.0-100.0); Mean Platelet Volume 7.3; Monocytes # (A) 0.4 k/uL (0-1.0); Monocytes % (A) 6 %; Neutrophils # (A) 4.7 k/uL (1.3-7.7); Neutrophils % (A) 61 %; Platelet Count 317 k/uL (150-450); RBC 4.89 m/uL (4.30-5.90); RDW 12.8 % (11.5-15.5); WBC 7.8 k/uL (3.8-10.6)
[2024-02-16 15:27] LABS: ALT 60 U/L (4-49); AST 50 U/L (17-59); African American GFR (CKD) >90 (>60 ml/min/1.73 sqM); Albumin 4.9 g/dL (3.5-5.0); Alcohol 42 mg/dL; Alkaline Phosphatase 73 U/L (38-126); Anion Gap 10 mmol/L; Blood Urea Nitrogen 10 mg/dL (9-20); Calcium 9.4 mg/dL (8.4-10.2); Carbon Dioxide 24 mmol/L (22-30); Chloride 108 mmol/L (98-107); Glucose 58 mg/dL (74-99); Magnesium 1.9 mg/dL (1.6-2.3); Non-African American GFR(CKD) >90 (>60 ml/min/1.73 sqM); Potassium 4.1 mmol/L (3.5-5.1); Sodium 142 mmol/L (137-145); Total Bilirubin 1.3 mg/dL (0.2-1.3); Total Protein 7.7 g/dL (6.3-8.2)
--- NOTE | 2024-02-16 15:28 | XR ---
EXAMINATION TYPE: XR chest 2V DATE OF EXAM: 02/16/2024 3:17 PM COMPARISON: Chest radiographs from 01/16/2023 CLINICAL INDICATION: Male, 38 years old with history of Chest Pain; TECHNIQUE: XR chest 2V Frontal and lateral views of the chest. FINDINGS: Lungs/Pleura: There is no evidence of pleural effusion, focal consolidation, or pneumothorax. Pulmonary vascularity: Unremarkable. Heart/mediastinum: Cardiomediastinal silhouette is unremarkable. Musculoskeletal: No acute osseous pathology. IMPRESSION: No acute cardiopulmonary disease/process. [facility], , 02/16/2024 3:26 PM
[2024-02-16 15:37] LABS: Partial Thromboplastin Time 22.3 sec (22.0-30.0); Prothrombin Time 10.9 sec (10.0-12.5)
--- NOTE | 2024-02-16 17:01 | ED ---
Chest Pain HPI - General Chief Complaint: Chest Pain Stated Complaint: Chest pain Time Seen by Provider: 02/16/24 14:50 Source: patient Mode of arrival: ambulatory Limitations: no limitations - History of Present Illness Initial Comments: 38-year-old male with past medical history of polysubstance abuse, alcohol use who presents emergency department reporting chest pain. States that for the past couple days he has had left-sided chest pain which is pleuritic in nature. He states the pain is getting worse as time goes on. He denies any trauma to th e area. Pain is not reproducible upon movement. He did not take anything to alleviate the pain. It was worse today which prompted the EMS call. He denies history of cardiac disease. No history of DVT or PE. Denies any calf pain or swelling. Admits to history of polysubstance abuse however states he has been clean for years. He denies fevers, chills or cough. No recent upper respiratory infection. No other alleviating, precipitating or modifying factors - Related Data Home Medications Medication Instructions Recorded Confirmed Multivitamins, Thera [Multivitamin 1 tab PO DAILY 02/16/24 02/16/24 (formulary)] Allergies Allergy/AdvReac Type Severity Reaction Status Date / Time No Known Allergies Allergy Verified 02/16/24 15:32 Review of Systems ROS Statement: Those systems with pertinent positive or pertinent negative responses have been documented in the HPI. ROS Other: All systems not noted in ROS Statement are negative. Past Medical History Additional Past Medical History / Comment(s): borderline personality disorder History of Any Multi-Drug Resistant Organisms: None Reported Past Surgical History: Adenoidectomy, Ear Surgery, Tonsillectomy Additional Past Surgical History / Comment(s): left arm laceration repair Past Psychological History: Anxiety, Bipolar Smoking Status: Never smoker Past Alcohol Use History: Occasional Past Drug Use History: IV Drug Use, Methamphetamine General Exam Limitations: no limitations General appearance: alert, in no apparent distress Head exam: Present: atraumatic, normocephalic, normal inspection Eye exam: Present: normal appearance, PERRL, EOMI. Absent: scleral icterus, conjunctival injection, periorbital swelling ENT exam: Present: normal exam, mucous membranes moist Neck exam: Present: normal inspection. Absent: tenderness, meningismus, lymphadenopathy Respiratory exam: Present: normal lung sounds bilaterally. Absent: respiratory distress, wheezes, rales, rhonchi, stridor Cardiovascular Exam: Present: regular rate, normal rhythm, normal heart sounds. Absent: systolic murmur, diastolic murmur, rubs, gallop, clicks GI/Abdominal exam: Present: soft, normal bowel sounds. Absent: distended, tenderness, guarding, rebound, rigid Extremities exam: Present: normal inspection, full ROM, normal capillary refill. Absent: tenderness, pedal edema, joint swelling, calf tenderness Back exam: Present: normal inspection Neurological exam: Present: alert, oriented X3, CN II-XII intact Psychiatric exam: Present: normal affect, normal mood Skin exam: Present: warm, dry, intact, normal color. Absent: rash Course Vital Signs 02/16/24 02/16/24 14:41 17:16 Temperature 98.7 F Pulse Rate 93 94 Respiratory 18 20 Rate Blood Pressure 117/82 122/74 O2 Sat by Pulse 97 97 Oximetry Chest Pain MDM - MDM Was pt. sent in by a medical professional or institution (, PA, TALENT ACQUISITION PROJECT MANAGER, urgent care, hospital, or snf...) When possible be specific @ -No Did you speak to anyone other than the patient for history (EMS, parent, family, police, friend...)? What history was obtained from this source @ -Spoke with EMS for history Did you review nursing and triage notes (agree or disagree)? Why? @ -I reviewed and agree with nursing and triage notes Were old charts reviewed (outside hosp., previous admission, EMS record, old EKG, old radiological studies, urgent care reports/EKG's, snf records)? Report findings @ -No old charts were reviewed Differential Diagnosis (chest pain, altered mental status, abdominal pain women, abdominal pain men, vaginal bleeding, weakness, fever, dyspnea, syncope, headache, dizziness, GI bleed, back pain, seizure, CVA, palpatations, mental health, musculoskeletal)? @ -Differential Chest Pain: Stable Angina, Unstable Angina, STEMI, NSTEMI Aortic Dissection, Pneumothorax, Musculoskeletal, Esophageal Spasm GERD, Cholecystitis, Pancreatitis, Zoster, this is not meant to be an all-inclusive list. EKG interpreted by me (3pts min.). @ -Yes and demonstrates sinus rhythm with a rate of 69. MN interval 182. QRS 97. QTc of 382. No acute ST segment elevations depressions X-rays interpreted by me (1pt min.). @ -Yes which demonstrates no acute process CT interpreted by me (1pt min.). @ -None done U/S interpreted by me (1pt. min.). @ -None done What testing was considered but not performed or refused? (CT, X-rays, U/S, labs)? Why? @ -None What meds were considered but not given or refused? Why? @ -None Did you discuss the management of the patient with other professionals (professionals i.e. , PA, TALENT ACQUISITION PROJECT MANAGER, lab, RT, psych nurse, social services, chief of harbor patrol, teacher, county health officer, cyanide case hardener)? Give summary @ -No Was smoking cessation discussed for >3mins.? @ -No Was critical care preformed (if so, how long)? @ -No Were there social determinants of health that impacted care today? How? (Homelessness, low income, unemployed, alcoholism, drug addiction, transportation, low edu. Level, literacy, decrease access to med. care, shelter, rehab)? @ -No Was there de-escalation of care discussed even if they declined (Discuss DNR or withdrawal of care, Hospice)? DNR status @ -No What co-morbidities impacted this encounter? (DM, HTN, Smoking, COPD, CAD, Cancer, CVA, ARF, Chemo, Hep., AIDS, mental health diagnosis, sleep apnea, morbid obesity)? @ -None Was patient admitted / discharged? Hospital course, mention meds given and route, prescriptions, significant lab abnormalities, going to OR and other pertinent info. @ -Upon arrival patient seen and evaluated in bed 3. Thorough history physical exam was performed. IV access was established. Laboratory studies are conducted. Chest x-ray was performed. Results are discussed with patient. Troponin negative. D-dimer negative. I do not feel that the patient has ca rdiac etiology for his pain. At this time he will be discharged. Recommend that he follow-up in 2 to 4 days with his primary care doctor. I do recommend that he has an echo performed. He is to return to the ED for any new or worsening symptoms. Patient agreeable plan was discharged in stable condition Undiagnosed new problem with uncertain prognosis? @ -No Drug Therapy requiring intensive monitoring for toxicity (Heparin, Nitro, Insulin, Cardizem)? @ -No Were any procedures done? @ -No Diagnosis/symptom? @ -Acute chest pain Acute, or Chronic, or Acute on Chronic? @ -Acute Uncomplicated (without systemic symptoms) or Complicated (systemic symptoms)? @ -Complicated Side effects of treatment? @ -No Exacerbation, Progression, or Severe Exacerbation? @ -No Poses a threat to life or bodily function? How? (Chest pain, [place], [place], pneumonia, PE, COPD, DKA, ARF, appy, cholecystitis, CVA, Diverticulitis, Homicidal, Suicidal, threat to staff... and all critical care pts) @ -No Disposition Clinical Impression: Chest pain Disposition: HOME SELF-CARE Condition: Stable Instructions (If sedation given, give patient instructions): Chest Pain (ED) Additional Instructions: Please follow-up with your primary care doctor. I do recommend an echo of your heart. Take Motrin 600 mg every 6 hours. Return to the emergency department for any new or worsening symptoms Is patient prescribed a controlled substance at d/c from ED?: No Referrals: None,Stated [Primary Care Provider] - 1-2 days Time of Disposition: 17:03
[2024-02-16 17:17] VITALS: BP 122/74; PULSE 94; RESP 20
== END 2024-02-16 17:17 | disposition home or self-care (01) ==
LOC: EC 14:40
DX: R07.89 Other chest pain (principal)
CPT/HCPCS: 36415; 93005; 85379; 80053; 83735; 84484; 85025; 85610; 85730; 71046; 99285; G0480; 80320